=== PATIENT | female | born 1935 | race Caucasian/White ===

== ENCOUNTER 2016-12-25 14:10 | Outpatient (CLI) | payer MEDICARE, OTHER | END 2016-12-25 14:11 | DX: R53.83 Other fatigue (principal); R00.2 Palpitations ==

== ENCOUNTER 2017-01-22 11:08 | Outpatient (CLI) | payer MEDICARE, OTHER | END 2017-01-22 11:09 | disposition home or self-care (01) | DX: E87.6 Hypokalemia (principal); Z79.899 Other long term (current) drug therapy ==

== ENCOUNTER 2017-03-12 10:06 | Outpatient (CLI) | payer MEDICARE, OTHER ==
[2017-03-12 11:16] LABS: CALCIUM 9.1 mg/dL (8.5-10.3); CREATININE 0.9 mg/dL (0.4-1.0); MAGNESIUM 2.2 mg/dL (1.7-2.8); PHOSPHORUS 3.5 mg/dL (2.5-4.6); POTASSIUM 3.4 mmol/L (3.5-5.0)
[2017-03-14 18:46] LABS: OSMOLALITY SERUM 290 mOsm/kg (278-305)
[2017-03-14 19:43] LABS: OSMOLALITY URINE 102 mOsm/kg (50-1200)
== END 2017-03-12 10:07 | disposition home or self-care (01) ==
LOC: LAB 10:06
PROVIDERS: ATTEND Internal Medicine Nephrology
DX: E87.6 Hypokalemia (principal)
CPT/HCPCS: 36415; 80069; 82570; 83735; 83930; 83935; 84133

== ENCOUNTER 2017-05-02 14:49 | Outpatient (CLI) | payer MEDICARE, OTHER ==
[2017-05-02 15:13] LABS: CALCIUM 9.5 mg/dL (8.5-10.3); CREATININE 1.3 mg/dL (0.4-1.0); POTASSIUM 3.9 mmol/L (3.5-5.0)
== END 2017-05-02 14:50 | disposition home or self-care (01) ==
LOC: LAB 14:49
PROVIDERS: ATTEND Internal Medicine Nephrology
DX: E87.6 Hypokalemia (principal)
CPT/HCPCS: 36415; 80048

== ENCOUNTER 2017-05-20 16:25 | Outpatient (CLI) | payer MEDICARE, OTHER ==
[2017-05-20 16:55] LABS: CALCIUM 9.6 mg/dL (8.5-10.3); CREATININE 1.2 mg/dL (0.4-1.0); POTASSIUM 3.8 mmol/L (3.5-5.0)
== END 2017-05-20 16:26 | disposition home or self-care (01) ==
LOC: LAB 16:25
PROVIDERS: ATTEND Internal Medicine Nephrology
DX: E87.6 Hypokalemia (principal)
CPT/HCPCS: 36415; 80048

== ENCOUNTER 2017-05-21 10:33 | Outpatient (CLI) | payer MEDICARE, OTHER | END 2017-05-21 10:34 | disposition home or self-care (01) | LOC: SC 10:33 | PROVIDERS: ATTEND Nurse Practitioner Family | DX: G47.33 Obstructive sleep apnea (adult) (pediatric) (principal) | CPT/HCPCS: 99214; G0463; 99212 ==

== ENCOUNTER 2017-05-22 09:39 | Outpatient (CLI) | payer MEDICARE, OTHER ==
[2017-05-22 13:10] LABS: BASOPHILS % (AUTO) 0.7 %; EOSINOPHILS # (AUTO) 0.2 10^3/uL (0.0-0.7); EOSINOPHILS % (AUTO) 3.2 %; HCT - HEMATOCRIT 41.6 % (37.0-47.0); HGB - HEMOGLOBIN 13.6 g/dL (12.0-16.0); LYMPHOCYTES # (AUTO) 1.1 10^3/uL (1.5-3.5); LYMPHOCYTES % (AUTO) 20.8 %; MEAN CORPUSCULAR HEMOGLOBIN 29.2 pg (27.0-31.0); MEAN CORPUSCULAR HGB CONC 32.8 g/dL (32.0-36.0); MEAN CORPUSCULAR VOLUME 88.9 fL (81.0-99.0); MONOCYTES # (AUTO) 0.3 10^3/uL (0.0-1.0); MONOCYTES % (AUTO) 5.1 %; NEUTROPHILS # (AUTO) 3.7 10^3/uL (1.5-6.6); NEUTROPHILS % (AUTO) 70.2 %; NUCLEATED RED BLOOD CELLS AUTO 0.1 /100WBC; RED BLOOD COUNT 4.68 10^6/uL (4.20-5.40); RED CELL DISTRIBUTION WIDTH 13.3 % (12.0-15.0); UNCORRECTED WHITE BLOOD COUNT 5.2 x10^3/uL; WHITE BLOOD COUNT 5.2 x10^3/uL (4.8-10.8)
[2017-05-22 13:29] LABS: ALBUMIN/GLOBULIN RATIO 1.4 (1.0-2.2); BILIRUBIN,TOTAL 0.6 mg/dL (0.2-1.0); BUN - BLOOD UREA NITROGEN 22 mg/dL (6-20); CALCIUM 9.5 mg/dL (8.5-10.3); CARBON DIOXIDE - CO2 28 mmol/L (21-32); CHLORIDE 103 mmol/L (101-111); CHOL/HDL RATIO 3.9 (<4.4); CHOLESTEROL 225 mg/dL; CREATININE 1.1 mg/dL (0.4-1.0); GFR - MDRD 48 (>89); GLUCOSE 109 mg/dL (70-100); HDL CHOLESTEROL 57 mg/dL; LDL/HDL RATIO 2.2 (<4.4); POTASSIUM 3.9 mmol/L (3.5-5.0); SODIUM 139 mmol/L (135-145); TOTAL PROTEIN 7.4 g/dL (6.7-8.2); TRIGLYCERIDES 212 mg/dL; VLDL CHOLESTEROL 42 mg/dL
== END 2017-05-22 09:40 | disposition home or self-care (01) ==
LOC: LAB.R 09:39
PROVIDERS: ATTEND Physician Assistant Medical
DX: E03.9 Hypothyroidism, unspecified (principal); I10 Essential (primary) hypertension; E78.2 Mixed hyperlipidemia; I47.1 Supraventricular tachycardia; Z79.899 Other long term (current) drug therapy
CPT/HCPCS: 80053; 80061; 84443; 85025

== ENCOUNTER 2017-06-11 07:58 | Outpatient (CLI) | payer MEDICARE, OTHER ==
--- NOTE | 2017-06-12 20:00 | Mammography Report ---
DIGITAL SCREENING MAMMOGRAM: 06/11/2017 CLINICAL INDICATION: An 81-year-old with history of late childbearing for screening. COMPARISON: 10/2014, 09/2013, 03/2012, 02/2012, 01/2008. TECHNIQUE: Routine CC and MLO projections were obtained of the breasts. The breasts demonstrate scattered fibroglandular densities bilaterally. Coarse and punctate, typical ly benign calcifications are present. No suspicious masses, clustered microcalcifications, or region s of architectural distortion are identified. IMPRESSION: BENIGN FINDINGS. RECOMMENDATION: ROUTINE ANNUAL SCREENING UNLESS OTHERWISE CLINICALLY INDICATED. BIRADS CATEGORY: 2, BENIGN FINDINGS. STANDARD QUALIFYING STATEMENTS 1. This examination was reviewed with the aid of Computed-Aided Detection (CAD). 2. A negative or benign imaging report should not delay biopsy if clinically suspicious findings are present. Consider surgical consultation if warranted. More than 5% of cancers are not identified b y imaging. 3. Dense breasts may obscure an underlying neoplasm. JOB #: [id number] EXT JOB #:[id number]
== END 2017-06-11 07:59 | disposition home or self-care (01) ==
LOC: DI 07:58
PROVIDERS: ATTEND Physician Assistant Medical
DX: Z12.31 Encounter for screening mammogram for malignant neoplasm of breast (principal)
CPT/HCPCS: 77067

== ENCOUNTER 2017-07-01 08:31 | Outpatient (CLI) | payer MEDICARE, OTHER ==
--- NOTE | 2017-07-01 15:58 | DEXA Report ---
DEXA SCAN: 07/01/2017 CLINICAL INDICATION: Postmenopausal. TECHNIQUE: Dual energy x-ray absorptiometry (DXA) was performed on a [employer] system. Regions measured are the AP spine, femoral neck, and, if needed, forearm. COMPARISON: None. In accordance with the International Society for Clinical Densitometry (ISCD) guidelines, data from previous exams may be reanalyzed using current recommendations and techniques. This is done to allow a more accurate basis for comparison with the current study. FINDINGS: The data for the lumbar spine is as follows: REGION BMD (g/cm/cm) T-SCORE Z-SCORE L1 1.138 0.1 1.1 L2 1.350 1.2 2.3 L3 1.568 3.1 4.1 L4 1.562 3.0 4.1 TOTAL 1.410 1.9 3.0 NOTE: All evaluable vertebrae are used for classification. The data for the hip is as follows: REGION BMD (g/cm/cm) T-SCORE Z-SCORE Neck 1.001 -0.3 1.4 TOTAL 0.969 -0.3 1.2 NOTE: The femoral neck or total proximal femur, whichever is lowest, is used for classification. IMPRESSION: THE WHO CLASSIFICATION BASED ON THE INTERNATIONAL REFERENCE STANDARD IS NORMAL. THE FRACTURE RISK IS NOT INCREASED. RECOMMENDATION: Patients with diagnosis of osteoporosis or osteopenia should have regular bone mineral density assessment. For those eligible for Medicare, routine testing is allowed once every 2 years. Testing frequency can be increased for patients who have rapidly progressing disease or for those who are receiving medical therapy to restore bone mass. COMMENT: World Health Organization (WHO) definitions for osteoporosis and osteopenia: NORMAL BMD: T-score at -1.0 or higher, fracture risk is low. OSTEOPENIA BMD: T-score between -1.0 and -2.5, fracture risk is increased. OSTEOPOROSIS BMD: T-score at -2.5 or lower, fracture risk high. National Osteoporosis Foundation recommends: 1. Obtain adequate dietary calcium (at least 1200 mg per day) and vitamin D (400 -800 international units per day). 2. Participate, as appropriate, in regular weightbearing and muscle- strengthening exercise. 3. Avoid tobacco use and reduce alcohol and caffeine intake. 4. For more detailed information see the website at www.NOF.org. MTDD
== END 2017-07-01 08:32 | disposition home or self-care (01) ==
LOC: DI 08:31
PROVIDERS: ATTEND Physician Assistant Medical
DX: Z13.820 Encounter for screening for osteoporosis (principal); Z78.0 Asymptomatic menopausal state
CPT/HCPCS: 77080

== ENCOUNTER 2017-07-02 09:50 | Outpatient (CLI) | payer MEDICARE, OTHER | END 2017-07-02 09:51 | disposition home or self-care (01) | LOC: SC 09:50 | PROVIDERS: ATTEND Nurse Practitioner Family | DX: G47.33 Obstructive sleep apnea (adult) (pediatric) (principal) | CPT/HCPCS: 99214; G0463; 99212 ==

== ENCOUNTER 2017-08-01 14:26 | Outpatient (CLI) | payer MEDICARE, OTHER ==
[2017-08-01 15:29] LABS: CALCIUM 9.9 mg/dL (8.5-10.3); CREATININE 1.1 mg/dL (0.4-1.0); MAGNESIUM 2.2 mg/dL (1.7-2.8); PHOSPHORUS 4.2 mg/dL (2.5-4.6); POTASSIUM 3.9 mmol/L (3.5-5.0)
== END 2017-08-01 14:27 | disposition home or self-care (01) ==
LOC: LAB 14:26
PROVIDERS: ATTEND Internal Medicine Nephrology
DX: E87.6 Hypokalemia (principal)
CPT/HCPCS: 36415; 80069; 83735

== ENCOUNTER 2017-10-24 15:56 | Outpatient (CLI) | payer MEDICARE, OTHER ==
[2017-10-24 16:27] LABS: ALBUMIN 3.9 g/dL (3.2-5.5); CALCIUM 9.7 mg/dL (8.5-10.3); CREATININE 0.9 mg/dL (0.4-1.0); PHOSPHORUS 3.9 mg/dL (2.5-4.6)
== END 2017-10-24 15:57 | disposition home or self-care (01) ==
LOC: LAB 15:56
PROVIDERS: ATTEND Physician Assistant Medical
DX: E87.6 Hypokalemia (principal); N18.9 Chronic kidney disease, unspecified
CPT/HCPCS: 36415; 80048; 80069; 83735

== ENCOUNTER 2017-11-20 13:08 | Outpatient (CLI) | payer MEDICARE, OTHER ==
[2017-11-20 13:29] LABS: CALCIUM 9.9 mg/dL (8.5-10.3)
== END 2017-11-20 13:09 | disposition home or self-care (01) ==
LOC: LAB 13:08
PROVIDERS: ATTEND Physician Assistant Medical
DX: E87.6 Hypokalemia (principal)
CPT/HCPCS: 36415; 80048

== ENCOUNTER 2017-12-10 15:07 | Outpatient (CLI) | payer MEDICARE, OTHER | END 2017-12-10 15:08 | disposition home or self-care (01) | LOC: DI 15:07 | PROVIDERS: ATTEND Physician Assistant Medical | DX: Z53.9 Procedure and treatment not carried out, unspecified reason (principal) ==

== ENCOUNTER 2017-12-11 14:45 | Outpatient (CLI) | payer MEDICARE, OTHER ==
--- NOTE | 2017-12-12 11:51 | MRI Preliminary Report ---
Exam: MRI SHOULDER LT W/O IMPRESSION: 1. Mildly chromic and acute osseous uropathy. 2. Mild subacromial/subdeltoid bursitis. 3. Multiple findings suggesting injury of the inferior gluteal humeral ligament complex. It appears t o be detached from the humerus posteriorly and from the glenoid inferiorly. There is either stripping of periosteum of the infraglenoid or some loose body formation that from the joint space that has tr aveled outside of the joint space. There is surrounding soft tissue edema. 3. Partial tear of the supraspinatus tendon in the setting of prior rotator cuff repair procedure. 5. Small intrasubstance tear of the proximal biceps tendon. [facility] MUSCULOS[facility] SECTION SITE ID: [id number]
--- NOTE | 2017-12-12 13:26 | MRI Report ---
EXAM: 1. LEFT HUMERUS MRI WITHOUT CONTRAST. 2. LEFT SHOULDER MRI WITHOUT CONTRAST EXAM DATE: 12/11/2017 05:27 PM. CLINICAL HISTORY: Left shoulder and proximal humeral pain for 5 days. COMPARISON: Radiograph 12/07/2009. MRI 12/27/2009. TECHNIQUE: Multiplanar, multisequence T1-weighted and fluid-sensitive sequences of the shoulder and p roximal half of the left humerus without contrast. Other: None. FINDINGS: Acromioclavicular Region: The acromion is type II. Mild acromioclavicular osteoarthropathy is present . The coracoacromial and coracoclavicular ligaments are intact. A mild amount of fluid is in the suba cromial/subdeltoid bursa. Glenohumeral Region: No subluxation. There is a moderate effusion. Mild osteophyte formation is in th e glenohumeral joint. The articular cartilage is intact. Prominent edema seen within and surrounding the inferior gluteal humeral ligament complex. Posteriorly there is a question of detachment of the p osterior band from the humerus (coronal image 701, image 15). In the inferior joint space, it appears that the complex has detached from the glenoid (701/11). There are hypointense foci of debris just i nferior to the glenoid (series 701, image 11 and series 901, image 16) that may represent calcified l oose bodies transferred out of the joint space or detached fibers/periosteum related to the detachmen t of the infraglenoid humeral ligament from the glenoid. Surrounding soft tissue edema is present. Bone Marrow: No fractures. Screws in the greater tuberosity are consistent with a prior rotator cuff repair procedure. Labrum: The labrum is unremarkable on this nonarthrographic study. Musculature/Rotator Cuff: The subscapularis tendon is unremarkable. The supraspinatus tendon has a pa rtial-thickness, joint-sided tear that is 4 mm in width, 1.2 cm in length, and up to 75% in thickness (series 901, image 8; series 701, image 10). The infraspinatus and teres minor tendons are intact. N o fatty atrophy. There is some edema within the infraspinatus muscle that is presumably related to th e pathology of the inferior glenohumeral ligament complex. Biceps Tendon: Better visualized on the humerus examination is a small intrasubstance tear of the pro ximal biceps tendon. Other: The subcutaneous tissues are unremarkable. IMPRESSION: 1. Mildly acromioclavicular osteoarthropathy. 2. Mild subacromial/subdeltoid bursitis. 3. Multiple findings suggesting injury of the inferior glenohumeral ligament complex. It appears to b e detached from the humerus posteriorly and from the glenoid inferiorly. There is either stripping of periosteum of the infraglenoid or some loose body formation from the joint space that has traveled o utside of the joint space. There is surrounding soft tissue edema. 4. Partial tear of the supraspinatus tendon in the setting of prior rotator cuff repair procedure. 5. Small intrasubstance tear of the proximal biceps tendon. [facility]CUL[facility] SECTION Referring Provider Line: [phone] SITE ID: [id number]
== END 2017-12-11 14:46 | disposition home or self-care (01) ==
LOC: DI 14:45
PROVIDERS: ATTEND Physician Assistant Medical
DX: M19.012 Primary osteoarthritis, left shoulder (principal); M75.52 Bursitis of left shoulder; M75.102 Unspecified rotator cuff tear or rupture of left shoulder, not specified as traumatic; S46.212A Strain of muscle, fascia and tendon of other parts of biceps, left arm, initial encounter; R60.0 Localized edema

== ENCOUNTER 2018-01-23 13:18 | Outpatient (CLI) | payer MEDICARE, OTHER ==
[2018-01-23 13:54] LABS: CALCIUM 9.3 mg/dL (8.5-10.3)
== END 2018-01-23 13:19 | disposition home or self-care (01) ==
LOC: LAB 13:18
PROVIDERS: ATTEND Physician Assistant Medical
DX: E87.6 Hypokalemia (principal); Z79.899 Other long term (current) drug therapy
CPT/HCPCS: 36415; 80048

== ENCOUNTER 2018-06-10 12:15 | Outpatient (CLI) | payer MEDICARE, OTHER ==
--- NOTE | 2018-06-11 17:22 | Mammography Report ---
Procedure Date: 06/10/2018 Accession Number: [id number] / [id number] Procedure: MGN - Screening Mammo Dig Bilat CPT Code: FULL RESULT: EXAM: Screening Mammo Dig Bilat DATE: 06/10/2018 12:31 PM CLINICAL HISTORY: 82-year-old female with history of late childbearing. TECHNIQUE: Bilateral CC and MLO views were obtained. COMPARISON: 06/11/2017, 11/23/2014, 10/21/2013, 02/28/2012. FINDINGS: The breasts demonstrate scattered fibroglandular densities bilaterally. There are coarse typically benign bilateral calcifications. No suspicious masses, clustered microcalcifications, or regions of architectural distortion are identified. IMPRESSION: Benign findings RECOMMENDATION: Routine annual screening unless otherwise clinically indicated. BIRADS CATEGORY 2: Benign findings STANDARD QUALIFYING STATEMENTS: 1. This examination was reviewed with the aid of Computer-Aided Detection (CAD). 2. A negative or benign imaging report should not delay biopsy if clinically suspicious findings are present. Consider surgical consultation if warrented. More than 5% of cancers are not identified by imaging. 3. Dense breasts may obscure an underlying neoplasm.
== END 2018-06-10 12:16 | disposition home or self-care (01) ==
LOC: DI.N 12:15
PROVIDERS: ATTEND Physician Assistant Medical
DX: Z12.31 Encounter for screening mammogram for malignant neoplasm of breast (principal)
CPT/HCPCS: 77067

== ENCOUNTER 2018-08-05 10:16 | Outpatient (CLI) | payer MEDICARE, OTHER | END 2018-08-05 10:17 | disposition home or self-care (01) | LOC: SC 10:16 | PROVIDERS: ATTEND Nurse Practitioner Family | DX: G47.33 Obstructive sleep apnea (adult) (pediatric) (principal); R53.83 Other fatigue | CPT/HCPCS: 99214; G0463; 99212 ==

== ENCOUNTER 2018-08-10 08:49 | Outpatient (CLI) | payer MEDICARE, OTHER ==
[2018-08-10 12:58] LABS: BASOPHILS % (AUTO) 0.7 %; EOSINOPHILS # (AUTO) 0.1 10^3/uL (0.0-0.7); EOSINOPHILS % (AUTO) 2.8 %; HGB - HEMOGLOBIN 12.8 g/dL (12.0-16.0); LYMPHOCYTES % (AUTO) 20.3 %; MEAN CORPUSCULAR HEMOGLOBIN 30.5 pg (27.0-31.0); MEAN CORPUSCULAR HGB CONC 34.8 g/dL (32.0-36.0); MEAN CORPUSCULAR VOLUME 87.5 fL (81.0-99.0); MEAN PLATELET VOLUME 8.2 fL (7.9-10.8); MONOCYTES # (AUTO) 0.3 10^3/uL (0.0-1.0); MONOCYTES % (AUTO) 5.7 %; NEUTROPHILS # (AUTO) 3.4 10^3/uL (1.5-6.6); NEUTROPHILS % (AUTO) 70.5 %; PLT - PLATELET COUNT 228 10^3/uL (130-450); RED BLOOD COUNT 4.21 10^6/uL (4.20-5.40); RED CELL DISTRIBUTION WIDTH 13.1 % (12.0-15.0); WHITE BLOOD COUNT 4.8 x10^3/uL (4.8-10.8)
[2018-08-10 13:13] LABS: ALBUMIN/GLOBULIN RATIO 1.3 (1.0-2.2); ALKALINE PHOSPHATASE 82 IU/L (42-121); ALT ALANINE AMINOTRANSFERASE 15 IU/L (10-60); AST ASPARTATE AMINOTRANSFERASE 21 IU/L (10-42); BILIRUBIN,TOTAL 0.6 mg/dL (0.2-1.0); BUN - BLOOD UREA NITROGEN 17 mg/dL (6-20); CALCIUM 9.2 mg/dL (8.5-10.3); CARBON DIOXIDE - CO2 28 mmol/L (21-32); CHLORIDE 104 mmol/L (101-111); CHOL/HDL RATIO 3.5 (<4.4); CHOLESTEROL 212 mg/dL; CREATININE 1.1 mg/dL (0.4-1.0); GFR - MDRD 48 (>89); GLUCOSE 105 mg/dL (70-100); HDL CHOLESTEROL 60 mg/dL; LDL CHOLESTEROL,CALCULATED 126 mg/dL; LDL/HDL RATIO 2.1 (<4.4); SODIUM 141 mmol/L (135-145); VLDL CHOLESTEROL 26 mg/dL
[2018-08-10 13:25] LABS: RHEUMATOID FACTOR NEGATIVE (Negative)
[2018-08-12 18:17] LABS: ANA SCREEN POSITIVE (NEGATIVE)
== END 2018-08-10 08:50 | disposition home or self-care (01) ==
LOC: LAB.N 08:49
PROVIDERS: ATTEND Physician Assistant Medical
DX: M25.50 Pain in unspecified joint (principal); Z79.899 Other long term (current) drug therapy; R53.83 Other fatigue; E03.9 Hypothyroidism, unspecified; E78.2 Mixed hyperlipidemia
CPT/HCPCS: 36415; 80053; 80061; 83721; 84443; 85025; 86038; 86200; 86430

== ENCOUNTER 2018-08-17 09:45 | Outpatient (CLI) | payer MEDICARE, OTHER ==
[2018-08-19 13:50] LABS: DNA (DS) ANTIBODY 1 IU/mL
[2018-08-19 17:46] LABS: COMPLEMENT COMPONENT C3C 127 mg/dL; COMPLEMENT COMPONENT C4C 35 mg/dL
[2018-08-20 00:26] LABS: SMOOTH MUSCLE IGG AB 25 U
== END 2018-08-17 09:46 | disposition home or self-care (01) ==
LOC: LAB.N 09:45
PROVIDERS: ATTEND Physician Assistant Medical
DX: R79.89 Other specified abnormal findings of blood chemistry (principal); M25.50 Pain in unspecified joint; R53.83 Other fatigue
CPT/HCPCS: 36415; 81599; 83516; 86160; 86225

== ENCOUNTER 2018-09-23 08:00 | Outpatient (CLI) | payer MEDICARE, OTHER ==
[2018-09-23 12:53] LABS: CALCIUM 9.3 mg/dL (8.5-10.3); CREATININE 0.4 mg/dL (0.4-1.0)
== END 2018-09-23 08:01 | disposition home or self-care (01) ==
LOC: LAB.R 08:00
PROVIDERS: ATTEND Physician Assistant Medical
DX: E87.6 Hypokalemia (principal); N18.9 Chronic kidney disease, unspecified; Z79.899 Other long term (current) drug therapy
CPT/HCPCS: 80048

== ENCOUNTER 2018-09-30 08:52 | Outpatient (CLI) | payer MEDICARE, OTHER | END 2018-09-30 08:53 | disposition home or self-care (01) | LOC: SC 08:52 | PROVIDERS: ATTEND Nurse Practitioner Family | DX: G47.33 Obstructive sleep apnea (adult) (pediatric) (principal) | CPT/HCPCS: 99214; G0463; 99212 ==

== ENCOUNTER 2019-01-27 15:11 | Outpatient (CLI) | payer MEDICARE, OTHER ==
[2019-01-27 15:33] LABS: CALCIUM 9.8 mg/dL (8.5-10.3); CREATININE 1.2 mg/dL (0.4-1.0); MAGNESIUM 2.2 mg/dL (1.7-2.8)
== END 2019-01-27 15:12 | disposition home or self-care (01) ==
LOC: LAB 15:11
PROVIDERS: ATTEND Family Medicine
DX: E87.6 Hypokalemia (principal)
CPT/HCPCS: 36415; 80048; 83735

== ENCOUNTER 2019-08-30 09:05 | Outpatient (CLI) | payer MEDICARE, OTHER ==
[2019-08-30 09:40] LABS: BASOPHILS % (AUTO) 0.8 %; EOSINOPHILS # (AUTO) 0.2 10^3/uL (0.0-0.7); EOSINOPHILS % (AUTO) 3.1 %; HGB - HEMOGLOBIN 13.3 g/dL (12.0-16.0); LYMPHOCYTES # (AUTO) 0.9 10^3/uL (1.5-3.5); MEAN CORPUSCULAR HEMOGLOBIN 29.1 pg (27.0-31.0); MEAN CORPUSCULAR HGB CONC 31.6 g/dL (32.0-36.0); MEAN CORPUSCULAR VOLUME 92.1 fL (81.0-99.0); MEAN PLATELET VOLUME 9.5 fL (7.9-10.8); MONOCYTES # (AUTO) 0.3 10^3/uL (0.0-1.0); MONOCYTES % (AUTO) 5.7 %; NEUTROPHILS # (AUTO) 3.7 10^3/uL (1.5-6.6); PLT - PLATELET COUNT 232 10^3/uL (130-450); RED BLOOD COUNT 4.57 10^6/uL (4.20-5.40); RED CELL DISTRIBUTION WIDTH 12.7 % (12.0-15.0); WHITE BLOOD COUNT 5.1 x10^3/uL (4.8-10.8)
[2019-08-30 10:01] LABS: ALBUMIN 3.9 g/dL (3.2-5.5); ALBUMIN/GLOBULIN RATIO 1.1 (1.0-2.2); ALKALINE PHOSPHATASE 83 IU/L (42-121); ALT ALANINE AMINOTRANSFERASE 12 IU/L (10-60); AST ASPARTATE AMINOTRANSFERASE 17 IU/L (10-42); BILIRUBIN,TOTAL 0.5 mg/dL (0.2-1.0); BUN - BLOOD UREA NITROGEN 21 mg/dL (6-20); CALCIUM 9.2 mg/dL (8.5-10.3); CARBON DIOXIDE - CO2 26 mmol/L (21-32); CHLORIDE 106 mmol/L (101-111); CHOL/HDL RATIO 3.8 (<4.4); CHOLESTEROL 225 mg/dL; CREATININE 1.1 mg/dL (0.4-1.0); GFR - MDRD 47 (>89); GLUCOSE 110 mg/dL (70-100); HDL CHOLESTEROL 59 mg/dL; LDL CHOLESTEROL,CALCULATED 136 mg/dL; LDL/HDL RATIO 2.3 (<4.4); MAGNESIUM 2.3 mg/dL (1.7-2.8); SODIUM 140 mmol/L (135-145); TOTAL PROTEIN 7.6 g/dL (6.7-8.2); VLDL CHOLESTEROL 30 mg/dL
[2019-08-30 10:26] LABS: THYROID STIMULATING HORMONE 0.38 uIU/mL (0.34-5.60)
[2019-08-30 10:29] LABS: FREE T4 (FREE THYROXINE) 0.77 ng/dL (0.58-1.64)
== END 2019-08-30 09:06 | disposition home or self-care (01) ==
LOC: LAB 09:05
PROVIDERS: ATTEND Family Medicine
DX: M25.50 Pain in unspecified joint (principal); G47.33 Obstructive sleep apnea (adult) (pediatric); R73.9 Hyperglycemia, unspecified; M15.9 Polyosteoarthritis, unspecified; F31.9 Bipolar disorder, unspecified; I10 Essential (primary) hypertension; E78.2 Mixed hyperlipidemia; E03.9 Hypothyroidism, unspecified; E87.6 Hypokalemia
CPT/HCPCS: 36415; 80053; 80061; 80175; 83721; 83735; 84439; 84443; 84481; 85025; 85651

== ENCOUNTER 2019-11-04 11:52 | Emergency (ER) | payer MEDICARE, OTHER ==
[2019-11-04 12:12] VITALS: BP 159/95
[2019-11-04] MEDS ORDERED: HYDROcod/ACETAM 5/325 MG TABLET PO STA (12:17)
--- NOTE | 2019-11-04 12:20 | ED Physician Documentation ---
PD HPI LOWER EXT INJURY - Stated complaint Stated Complaint: L ANKLE INJURY - Chief complaint Chief Complaint: Ext Problem - History obtained from History obtained from: Patient - History of Present Illness PD HPI LOW EXT INJURY LOCATION: Left (She twisted her ankle yesterday afternoon, it was not too bad at first but is now more severe, no other injuries.) Review of Systems Constitutional: reports: Reviewed and negative Nose: reports: Reviewed and negative Throat: reports: Reviewed and negative PD PAST MEDICAL HISTORY - Past Medical History Cardiovascular: Hypertension, High cholesterol Musculoskeletal: Osteoarthritis, Scoliosis, Other - Past Surgical History Past Surgical History: Yes Ortho: Knee replacement, Shoulder arthroplasty, Spine surgery /IMMIGRATION OFFICER: Hysterectomy HEENT: Cataracts - Present Medications Home Medications: Ambulatory Orders Medication Instructions Recorded Confirmed Clopidogrel [Plavix] 75 mg PO DAILY 01/13/14 06/11/14 Digoxin 0.25 mg PO DAILY 01/13/14 06/11/14 Levothyroxine [Synthroid] 88 mcg PO QDAC 01/13/14 06/11/14 Triamterene/Hydrochlorothiazid 1 each PO DAILY 01/13/14 06/11/14 [Triamterene-Hctz 37.5-25 mg Tb] lamoTRIgine [LaMICtal] 300 mg PO DAILY 01/13/14 06/11/14 Pravastatin Sodium 20 mg DAILY 05/31/14 06/11/14 Venlafaxine ER [Effexor ER] 150 mg DAILY 05/31/14 06/11/14 Oxycodone HCl/Acetaminophen 1 each PO Q6H PRN #15 tablet 06/11/14 [Percocet 5-325 mg Tablet] Hydrocodone/Acetaminophen 1 - 2 each PO Q6H PRN #14 tablet 11/04/19 [Hydrocodon-Acetaminophen 5-325] - Allergies Allergies/Adverse Reactions: Allergies Allergy/AdvReac Type Severity Reaction Status Date / Time No Known Drug Allergies Allergy Verified 11/04/19 12:12 - Social History Does the pt smoke?: No Smoking Status: Never smoker Does the pt drink ETOH?: No Does the pt have substance abuse?: No - Immunizations Immunizations are current?: No Immunizations: TDAP >10years/unknown - POLST Patient has POLST: No PD ED PE NORMAL - Vitals Vital signs reviewed: Yes - General General: Alert and oriented X 3, No acute distress - Extremities Extremities: Other (Quite tender lateral ankle and swollen. Also a bit tender over the lateral 5th MT.) - Neuro Neuro: Alert and oriented X 3, Normal speech Results - Vitals Vitals: Vital Signs - 24 hr 11/04/19 12:04 Temperature 37 C Heart Rate 78 Respiratory 16 Rate Blood Pressure 159/95 H O2 Saturation 96 Oxygen O2 Source Room air - Rads (name of study) L ankle and foot XRs Radiology: EMP read contemporaneously (NAD) Departure - Departure Disposition: Home, Self Care Clinical Impression: Left ankle sprain Qualifiers: Encounter type: initial encounter Involved ligament of ankle: anterior talofibular ligament Qualified Code(s): S93.492A - Sprain of other ligament of left ankle, initial encounter Condition: Good Record reviewed to determine appropriate education?: Yes Instructions: ED Sprain Ankle Prescriptions: Hydrocodone/Acetaminophen [Hydrocodon-Acetaminophen 5-325] 1 - 2 each PO Q6H PRN #14 tablet PRN Reason: pain Comments: Recheck with your doctor in a week or 2 if not significantly improved, return for new worsening symptoms. You can ice and elevate as you are already doing. Do not drink or drive while taking narcotic pain medication. Note that many narcotic pain relievers also contain Tylenol/acetaminophen. Please ensure that your total dose of acetaminophen from all sources does not exceed 3 g (3000 mg) per day. You may get constipated while on this medication. Take a stool softener such as Colace twice a day while you are on it. Also add an [id number]-[id number] laxative such as senna or MiraLAX on any day that you do not have a bowel movement. If you received a narcotic pain medication or sedative while in the emergency department, do not drive for the next 24 hours.
--- NOTE | 2019-11-04 12:53 | XRAY Report ---
Reason: pain, swelling, twisted ankle Procedure Date: 11/04/2019 Accession Number: [id number] / [id number] Procedure: XR - Ankle 3 View LT CPT Code: Final Report FULL RESULT: EXAM: LEFT ANKLE RADIOGRAPHY EXAM DATE: 11/04/2019 12:31 PM. CLINICAL HISTORY: Pain, swelling, twisted ankle. COMPARISON: None. TECHNIQUE: 3 views. FINDINGS: Bones: No evidence of acute displaced fracture. Corticated bony foci of the distal margin of the lateral malleolus may be secondary to prior [place] A injury or may represent soft tissue calcification. Joints: No evidence of dislocation. Soft Tissues: There is diffuse soft tissue swelling. This is most pronounced within the lateral compartment. IMPRESSION: No evidence of acute fracture or dislocation. [facility]
--- NOTE | 2019-11-04 12:57 | XRAY Report ---
Reason: foot inj Procedure Date: 11/04/2019 Accession Number: [id number] / [id number] Procedure: XR - Foot 3 View LT CPT Code: Final Report FULL RESULT: EXAM: LEFT FOOT RADIOGRAPHY EXAM DATE: 11/04/2019 12:29 PM. CLINICAL HISTORY: Foot injury COMPARISON: None. TECHNIQUE: 3 views. FINDINGS: Bones: No fracture or focal bony lesion. Joints: No evidence of dislocation. There are midfoot degenerative changes. Soft Tissues: No unexpected soft tissue findings. IMPRESSION: No evidence of fracture or dislocation. [facility]
== END 2019-11-04 13:03 | disposition home or self-care (01) ==
LOC: ED 11:52
DX: S93.492A Sprain of other ligament of left ankle, initial encounter (principal); X50.1XXA Overexertion from prolonged static or awkward postures, initial encounter; Y93.01 Activity, walking, marching and hiking; I10 Essential (primary) hypertension; Z79.02 Long term (current) use of antithrombotics/antiplatelets
CPT/HCPCS: 73610; 73630; 99283; A9270

== ENCOUNTER 2019-11-29 14:22 | Outpatient (CLI) | payer MEDICARE, OTHER ==
--- NOTE | 2019-11-30 10:25 | XRAY Report ---
Reason: ANKLE JOINT PAIN.LEFT Procedure Date: 11/29/2019 Accession Number: [id number] / [id number] Procedure: XR - Ankle 3 View LT CPT Code: Final Report FULL RESULT: EXAM: LEFT ANKLE RADIOGRAPHY EXAM DATE: 11/29/2019 02:32 PM. CLINICAL HISTORY: ANKLE JOINT PAIN. LEFT. COMPARISON: ANKLE 3 VIEW LT 11/04/2019 12:06 PM. TECHNIQUE: 3 views. FINDINGS: Bones: Sequela of prior injury inferior to the lateral malleolus redemonstrated and similar to the prior examination. Decreased conspicuity of the subtle linear lucency through the lateral malleolus with minimal callus formation along the lateral aspect of the lateral malleolus. Joints: Normal. No effusion. No subluxations. The ankle mortise is normally aligned. Soft Tissues: The previously seen soft tissue swelling along the lateral aspect of the ankle has resolved. IMPRESSION: 1. Healing subtle nondisplaced fracture of the lateral malleolus. 2. Sequela of prior injury along the inferior margin of the lateral malleolus redemonstrated and similar. 3. Resolving soft tissue swelling along the lateral aspect of the ankle. [facility]
== END 2019-11-29 14:23 | disposition home or self-care (01) ==
LOC: DI 14:22
PROVIDERS: ATTEND Nurse Practitioner
DX: M25.572 Pain in left ankle and joints of left foot (principal); S82.65XD Nondisplaced fracture of lateral malleolus of left fibula, subsequent encounter for closed fracture with routine healing

== ENCOUNTER 2019-12-01 11:49 | Outpatient (CLI) | payer MEDICARE, OTHER ==
--- NOTE | 2019-12-01 16:57 | XRAY Report ---
Reason: LOCALIZED SWELLING ON FINGER, LEFT, FINGER PAIN Procedure Date: 12/01/2019 Accession Number: [id number] / [id number] Procedure: XR - Hand 2 View LT CPT Code: Final Report FULL RESULT: EXAM: LEFT HAND RADIOGRAPHY EXAM DATE: 12/01/2019 12:34 PM. CLINICAL HISTORY: LOCALIZED SWELLING ON FINGER, LEFT, FINGER PAIN. COMPARISON: WRIST 3 VIEW LT 06/11/2014 4:52 PM. TECHNIQUE: 3 views. FINDINGS: Bones: No acute displaced fracture or malalignment. Joints: Degenerative changes of left first and second carpometacarpal joints and distal interphalangeal joints. Soft Tissues: Normal. No soft tissue swelling. IMPRESSION: No acute displaced fracture or malalignment. Degenerative changes of left first and second carpometacarpal joints and distal interphalangeal joints. [facility]
== END 2019-12-01 11:50 | disposition home or self-care (01) ==
LOC: DI 11:49
PROVIDERS: ATTEND Family Medicine
DX: M19.042 Primary osteoarthritis, left hand (principal)

== ENCOUNTER 2020-02-11 11:22 | Outpatient (CLI) | payer MEDICARE, OTHER ==
[2020-02-11 11:56] LABS: ALBUMIN 4.2 g/dL (3.2-5.5); ALBUMIN/GLOBULIN RATIO 1.3 (1.0-2.2); BILIRUBIN,TOTAL 0.5 mg/dL (0.2-1.0); CALCIUM 8.9 mg/dL (8.5-10.3); TOTAL PROTEIN 7.4 g/dL (6.7-8.2)
== END 2020-02-11 11:23 | disposition home or self-care (01) ==
LOC: LAB 11:22
PROVIDERS: ATTEND Nurse Practitioner
DX: E87.6 Hypokalemia (principal); N18.9 Chronic kidney disease, unspecified; Z79.899 Other long term (current) drug therapy
CPT/HCPCS: 36415; 80053

== ENCOUNTER 2021-06-08 10:36 | Outpatient (CLI) | payer MEDICARE, OTHER ==
[2021-06-08 10:56] LABS: BASOPHILS % (AUTO) 0.5 %; EOSINOPHILS # (AUTO) 0.1 10^3/uL (0.0-0.7); EOSINOPHILS % (AUTO) 2.4 %; HCT - HEMATOCRIT 41.6 % (37.0-47.0); HGB - HEMOGLOBIN 13.4 g/dL (12.0-16.0); LYMPHOCYTES % (AUTO) 17.9 %; MEAN CORPUSCULAR HEMOGLOBIN 29.7 pg (27.0-31.0); MEAN CORPUSCULAR HGB CONC 32.2 g/dL (32.0-36.0); MEAN CORPUSCULAR VOLUME 92.2 fL (81.0-99.0); MEAN PLATELET VOLUME 9.2 fL (7.9-10.8); MONOCYTES # (AUTO) 0.3 10^3/uL (0.0-1.0); MONOCYTES % (AUTO) 5.7 %; NEUTROPHILS # (AUTO) 4.3 10^3/uL (1.5-6.6); NEUTROPHILS % (AUTO) 73.3 %; PLT - PLATELET COUNT 230 10^3/uL (130-450); RED BLOOD COUNT 4.51 10^6/uL (4.20-5.40); RED CELL DISTRIBUTION WIDTH 12.9 % (12.0-15.0); WHITE BLOOD COUNT 5.8 x10^3/uL (4.8-10.8)
[2021-06-08 11:14] LABS: ALBUMIN 4.1 g/dL (3.2-5.5); ALBUMIN/GLOBULIN RATIO 1.2 (1.0-2.2); ALKALINE PHOSPHATASE 76 IU/L (42-121); ALT ALANINE AMINOTRANSFERASE 14 IU/L (10-60); AST ASPARTATE AMINOTRANSFERASE 17 IU/L (10-42); BILIRUBIN,TOTAL 0.7 mg/dL (0.2-1.0); BUN - BLOOD UREA NITROGEN 21 mg/dL (6-20); CALCIUM 9.9 mg/dL (8.5-10.3); CARBON DIOXIDE - CO2 30 mmol/L (21-32); CHLORIDE 101 mmol/L (101-111); CHOL/HDL RATIO 4.4 (<4.4); CHOLESTEROL 261 mg/dL; GFR - MDRD 53 (>89); GLUCOSE 105 mg/dL (70-100); HDL CHOLESTEROL 60 mg/dL; LDL CHOLESTEROL,CALCULATED 165 mg/dL; LDL/HDL RATIO 2.8 (<4.4); POTASSIUM 4.2 mmol/L (3.5-5.0); SODIUM 141 mmol/L (135-145); TOTAL PROTEIN 7.6 g/dL (6.7-8.2); TRIGLYCERIDES 178 mg/dL; VLDL CHOLESTEROL 36 mg/dL
[2021-06-08 11:25] LABS: THYROID STIMULATING HORMONE 0.68 uIU/mL (0.34-5.60)
[2021-06-08 12:33] LABS: ESTIMATED AVERAGE GLUCOSE 120 mg/dL (70-100); HEMOGLOBIN A1c% 5.8 % (4.27-6.07)
== END 2021-06-08 10:37 | disposition home or self-care (01) ==
LOC: LAB 10:36
PROVIDERS: ATTEND Family Medicine
DX: I10 Essential (primary) hypertension (principal); I47.1 Supraventricular tachycardia; E03.9 Hypothyroidism, unspecified; G47.30 Sleep apnea, unspecified; R73.9 Hyperglycemia, unspecified
CPT/HCPCS: 36415; 80053; 80061; 83036; 83721; 84443; 85025

== ENCOUNTER 2021-06-22 15:16 | Outpatient (CLI) | payer MEDICARE, OTHER ==
--- NOTE | 2021-06-22 15:52 | SLEEP CARE CONSULTATION ---
Information from patient questionnaire entered by Nelly Silva. I have reviewed and concur with the information entered by Nelly Silva. This document represents the service I personally performed and the decisions made by , Taryn Gilbert ARNP. History of Present Illness Service Date and Time: 06/22/2021 1516 Previous diagnosis: Mild, Obstructive Sleep Apnea-Hypopnea Syndrome AHI: 9.4 (in 2014) Reason for follow up: annual (last seen 2018) Equipment type: CPAP Equipment obtained from: [employer] (getting supplies as needed) Mask style: Nasal Mask brand: Respironics (Dreamwear) Backup mask available: Yes (old mask) Last cushion change: don't know Prior sleep studies: Yes Year and Where: 2014 - [facility] HPI additional information: TREY HODGES was diagnosed to have mild, AHI 9.4, obstructive sleep apnea- hypopnea syndrome and returned today for CPAP therapy annual follow-up. CPAP Compliance Data - Data Reviewed with Patient Average duration of nightly device use: 1 hr 20 min Compliance rate %: 16.7 (180 days) Current pressure setting (cmH2O): 10 Humidity settin Heated hose settin Average residual AHI: 6.1 Average large leak: 1 min 46 sec Subjective Missed days of use due to: reports: illness (allergies), travel (works in [employer] [place]) Patient concerns: reports: air blowing in eyes, nasal congestion, dry mouth, nose, throat (dry mouth; rarely uses the humidifier on machine). denies: aerophagia, mask discomfort, mask leak noise, condensation in mask/hose, epistaxis, other Observed to snore while using device: No Current pressure setting perceived as: comfortable On therapy, patient: reports: other (hard for her to tell if due to machine or other health issues). denies: drowsiness while driving Initial [place] Sleepiness Scale score: 9 (in 2014) Current [place] Sleepiness Scale score: 13 Allergies and Home Medications Home medication list reviewed: Yes (no changes) Review of Systems Review of systems same as previous: Yes (no changes) Physical Exam Heart Rate: 86 O2 Saturation: 96 Height: 5 ft 6 in Weight: 207 lb Body Mass Index: 33.4 BMI Classification: Obese Impression and Plan 1. Obstructive Sleep Apnea-Hypopnea Syndrome, mild, with poor treatment compliance and fair apnea control with minimally elevated residual AHI. On CPAP therapy, the patient has better sleep quality and is more rested overall. Patient compliance is low because her machine is not working. She has had sporadic use of her CPAP machine because she travels a lot for her job and it is difficult to take a long. She does try and reuse it when she has it but then she will forget. Patient states she does want to use the CPAP because she has noticed improvement when she does. The patients pressure will be changed to autoCPAP 10.5 cmH20 for elevation of residual AHI. Patient advised to contact me if pressure change is uncomfortable so that it can be adjusted. Goals for apnea control discussed. I informed the patient that [employer] has a recall on several devices like the patients machine. Patient was encouraged to register their device online with [employer] for the recall to see if their device is affected. If their device is affected they should start a claim. Patient denies any black particles seen in machine or hoses, any unusual odors coming from device. Patient has not experienced any physical symptoms such as upper airway irritation, headache, skin or eye irritation, asthma, nausea/vomiting, difficulty breathing or chest pain. Patient informed that they may use an inline CPAP filter that they can obtain online to reduce chance of any particles being inhaled or ingested. We discussed thoroughly the health risks of not using the CPAP versus continuing use with the filter in place. If patient is not able to sleep due to waking up choking, gasping for air or other respiratory distress that they may decide to continue using it until it is e ither replaced or repaired. Since the patients current machine is at least 5 years old the patient is opting to update their device with a device that is not on the recall. Patient saw some examples of the new devices and thinks the marketing proposal specialist more compact machines will be easier to use and take with her when she travels. Patient voiced understanding and agreement with plan. Patient's apnea severity and rationale for treatment to reduce apnea, improve sleep quality and reduce cardiovascular and cerebrovascular events was reviewed. I also reviewed the benefit of consistent device use of CPAP for hypertension, depression and anxiety. * Change auto CPAP pressure to 10.5 cmH2O * Update device and supplies * Patient to register her device with recall * Notify me if snoring with mask or feeling that the pressure is too much or too little * Attempt to lose weight * Call this office if any problems using CPAP * Return for follow up in one month after obtaining new device, or sooner if concerns arise Counseling Topics: Spare mask, Weight loss health impact Visit Type: In Office Time Spent with Patient (minutes): 23 Provider Statement: I spent 100% of the Face to Face Visit with the patient with greater than 50% spent counseling the patient and coordination of care.
== END 2021-06-22 15:17 | disposition home or self-care (01) ==
LOC: SC 15:16
PROVIDERS: ATTEND Nurse Practitioner Family
DX: G47.33 Obstructive sleep apnea (adult) (pediatric) (principal); E66.9 Obesity, unspecified; Z68.33 Body mass index [BMI] 33.0-33.9, adult
CPT/HCPCS: 99213; G0463; 99212